=== PATIENT | male | born 1960 | race Caucasian/White ===

== ENCOUNTER 2016-06-16 12:44 | Inpatient (IN) | payer BC ==
[~2016-06-16] VITALS: Ht 193 cm; Wt 142.0 kg
--- NOTE | 2016-06-16 12:55 | NUR ---
PT BIB SELF C/O L FOOT CELLULITIS X2 WEEKS. PT WAS SEEN IN AN URGENT CARE AND TOOK PRESCRIBED BACTRIM AND KEFLEX WITH NO RELIEF. FOOT SWOLLEN, REDDENED, WARM TO THE TOUCH. NO EXUDATE OR ODOR. ABLE TO ABULATE WITH PAIN. NO OTHER COMPLAINTS. IN ER BED 01.
[2016-06-16] MEDS ORDERED: IV NS 0.9% 1,000 ML ONE (13:15)
[2016-06-16] MEDS ORDERED: IV SET PRIMARY PUMP SET 1 EA INFUS.SET MC ONE ×2 (13:15→15:35)
[2016-06-16 13:21] LABS: BASOPHILS # (AUTO) 0.1 /CMM (0.0-0.2); BASOPHILS % (AUTO) 0.5 % (0.0-2.0); EOSINOPHILS # (AUTO) 0.5 /CMM (0.0-0.7); EOSINOPHILS % (AUTO) 4.8 % (0.0-6.0); HEMATOCRIT 42 % (39-51); LYMPHOCYTES # (AUTO) 1.1 /CMM (0.8-4.8); LYMPHOCYTES % (AUTO) 9.8 % (20.0-44.0); MEAN CORPUSCULAR HEMOGLOBIN 28 PG (26.0-33.0); MEAN CORPUSCULAR HGB CONC 33 g/dl (31.0-36.0); MEAN CORPUSCULAR VOLUME 83 fL (80-96); MONOCYTES # (AUTO) 0.6 /CMM (0.1-1.30); MONOCYTES % (AUTO) 5.2 % (2.0-12.0); NEUTROPHILS # (AUTO) 8.9 /CMM (1.8-8.9); NEUTROPHILS % (AUTO) 79.7 % (43.0-81.0); PLATELET COUNT (AUTO) 334 /CMM (150-450); RDW COEFFICIENT OF VARIATION 12.4 (11.5-15.0); RED BLOOD CELL COUNT(AUTO) 5.08 MIL/uL (4.5-6.0); WHITE BLOOD COUNT (AUTO) 11.2 K/uL (4.3-11.0)
[2016-06-16 13:28] LABS: CALCIUM, SERUM 9.2 mg/dL (8.5-10.1); POTASSIUM 3.5 mmol/L (3.5-5.1)
[2016-06-16] MEDS ORDERED: IV NS 0.9% 1,000 ML BAG IV ONE (13:30)
--- NOTE | 2016-06-16 13:43 | NUR ---
RT WRIST #20 IV ACCESS. BLOOD SAMPLE COLLECTED SENT TO LAB
[2016-06-16] MEDS ORDERED: PIPERACILLIN /TAZOBACTAM 3.375 G in IV D5W 50 ML IV ONE (15:30)
[2016-06-16] MEDS ORDERED: VANCOMYCIN 1 GM in IV D5W 250 ML IV ONE (15:30)
[2016-06-16] MEDS ORDERED: ONDANSETRON HCL/PF 4 MG/2 ML VIAL ONE (15:53)
--- NOTE | 2016-06-16 15:55 | NUR ---
[facility] CURRIE ATTENDING .
[2016-06-16 16:00] VITALS: BP 137/82
[2016-06-16] MEDS ORDERED: ONDANSETRON HCL/PF - ER 4 MG/2 ML VIAL IV ONE (16:00)
--- NOTE | 2016-06-16 16:06 | NUR ---
PAGED DR DAVIS
--- NOTE | 2016-06-16 16:12 | NUR ---
DR DAVIS AT PT BEDSIDE
[2016-06-16] MEDS ORDERED: ZOLPIDEM TARTRATE 5 MG TABLET PO PRN (16:30)
[2016-06-16] MEDS ORDERED: ACETAMINOPHEN 325 MG TABLET PO PRN (16:30)
[2016-06-16] MEDS ORDERED: MAGNESIUM HYDROXIDE 30 ML UDC PO PRN (16:30)
[2016-06-16] MEDS ORDERED: MAG HYDROX/AL HYDROX/SIMETH 30 ML UDC PO PRN (16:30)
[2016-06-16] MEDS ORDERED: ONDANSETRON HCL/PF 4 MG/2 ML VIAL IVP PRN (16:30)
[2016-06-16] MEDS ORDERED: DEXTROSE 50%-WATER 50 ML DISP.SYRIN IV PRN (16:30)
[2016-06-16] MEDS ORDERED: Z GUARD REMEDY 2 OZ OINT TP PRN (16:30)
--- NOTE | 2016-06-16 16:30 | NUR ---
RN INITIAL NOTE PT RECEIVED IN BED, ADMITTED FROM ER. REPORT RECEIVED FROM ANDERSON. PT AWAKE, ALERT AND ORIENTED. ABLE TO MAKE NEEDS KNOWN. RESPIRATIONS ARE EVEN AND UNLABORED. SATING WELL ON RA. NO S/S OF RESPIRATORY DISTRESS OR SOB. SKIN IS WARM AND DRY TO TOUCH. SKIN IS INTACT. LEFT LOWER EXTREMITY IS EDEMATOUS. IV SITE, FLUSHED AND PATENT. SAFETY PRECAUTIONS IMPLEMENTED. BED IN LOCKED, LOW POSITION, TWO SIDE RAILS UP. BELONGINGS AND CALL LIGHT WITHIN REACH. WILL CONTINUE TO MONITOR.
[2016-06-16 17:00] VITALS: BP 137/82
[2016-06-16] MEDS: ENOXAPARIN SODIUM 40 MG/0.4 ML DISP.SYRIN SQ SCH (17:00)
[2016-06-16] MEDS ORDERED: FEE PK DOSING 1 MIN EA MC ONE (17:08)
[2016-06-16] MEDS: BLOOD SUGAR DIAGNOSTIC 1 EACH STRIP IN SCH ×2 (18:37→21:24)
[2016-06-16] MEDS: IV 1/2NS 1000 ML 1,000 ML IV PRN (18:38)
--- NOTE | 2016-06-16 19:09 | NUR ---
RN CLOSING NOTE PT RESTING IN BED COMFORTABLY. ALL MD ORDERS CARRIED OUT. PT KEPT CLEAN AND DRY. SAFETY MEASURES IMPLEMENTED AT ALL TIMES. WILL GIVE REPORT TO PM RN FOR MICHAEL.
--- NOTE | 2016-06-16 19:30 | NUR ---
RN NOTES RECEIVED PT AWAKE ON BED AOX4 ABLE TO MAKE KNOWN NEEDS. SATING 98% IN RA WITH RIGHT WRIST G 20 RUNNING WITH 1/2 NS @ 75 CC/HR INTACT AND PATENT. LEFT FOOT CELLULITIS STILL RED AND SWOLLEN NO OOZING SHOWS. AFEBRILE. COMPLAINING OF PAIN BUT TOLERATED AT THIS TIME. CALL LIGHT KEPT WITHIN EASY REACH REMINDED TO USE WHEN NEEDED. KEPT PT CLEAN AND COMFORTABLE IN BED. WILL CONTINUE TO MONITOR.
[2016-06-16 20:00] VITALS: BP 134/77
[2016-06-16] MEDS: HYDROCODONE/APAP 10/325MG 1 EA TABLET PO PRN (21:19)
[2016-06-16] MEDS: INSULIN REGULAR, HUMAN 100 UNIT/ML 3 ML VIAL SQ PRN (22:43)
[2016-06-16] MEDS ORDERED: SECONDARY IV SET 1 EA INFUS.SET MC ONE (23:34)
[2016-06-16] MEDS: VANCOMYCIN 1.5 GM in IV D5W 500 ML IV SCH (23:38)
[2016-06-17 04:00] VITALS: BP 136/81
[2016-06-17] MEDS: HYDROCODONE/APAP 10/325MG 1 EA TABLET PO PRN ×3 (04:10→15:53)
[2016-06-17 06:46] LABS: BASOPHILS % (AUTO) 0.5 % (0.0-2.0); EOSINOPHILS # (AUTO) 0.5 /CMM (0.0-0.7); HEMATOCRIT 38 % (39-51); HEMOGLOBIN 12.4 g/dL (13.5-17.5); LYMPHOCYTES # (AUTO) 1.1 /CMM (0.8-4.8); LYMPHOCYTES % (AUTO) 12.2 % (20.0-44.0); MEAN CORPUSCULAR HEMOGLOBIN 27 PG (26.0-33.0); MEAN CORPUSCULAR HGB CONC 33 g/dl (31.0-36.0); MEAN CORPUSCULAR VOLUME 84 fL (80-96); MONOCYTES # (AUTO) 0.9 /CMM (0.1-1.30); MONOCYTES % (AUTO) 9.7 % (2.0-12.0); NEUTROPHILS # (AUTO) 6.4 /CMM (1.8-8.9); NEUTROPHILS % (AUTO) 71.6 % (43.0-81.0); PLATELET COUNT (AUTO) 300 /CMM (150-450); RDW COEFFICIENT OF VARIATION 13.7 (11.5-15.0); RED BLOOD CELL COUNT(AUTO) 4.51 MIL/uL (4.5-6.0); WHITE BLOOD COUNT (AUTO) 8.9 K/uL (4.3-11.0)
[2016-06-17] MEDS: BLOOD SUGAR DIAGNOSTIC 1 EACH STRIP IN SCH ×4 (06:51→22:38)
[2016-06-17 06:58] LABS: CALCIUM, SERUM 8.7 mg/dL (8.5-10.1); CREATININE 0.9 mg/dL (0.6-1.3); PHOSPHORUS 3.5 mg/dL (2.5-4.9); POTASSIUM 3.9 mmol/L (3.5-5.1)
--- NOTE | 2016-06-17 07:00 | NUR ---
RN NOTES PATIENT REMAINED LEFT LOWER LEG CELLULITIS STILL IN PAIN IV ATB TOLERATED WELL. NO ASE NOTED. AFEBRILE. PT IS CONCERN THAT MEDICINE IS NOT DOING ANYTHING TO HIS FOOT STILL SWOLLEN EDUCATE PATIENT REGARDING ATB AND PLAN OF CARE TO HIM PT VERBALIZED UNDERSTANDING. PAIN MEIDCINE REMAINED EFFECTIVE. PT REMAINED IN STABLE CONDITION. ALL NEEDS ATTENDED. ENDORSED CONTINUITY OF CARE TO AM NURSE
[2016-06-17 07:04] LABS: THYROID STIMULATING HORMONE 2.05 uIU/mL (0.358-3.74)
--- NOTE | 2016-06-17 07:25 | NUR ---
MS RN NOTE: RECEIVED PATIENT WHILE RESTING IN BED, A/O X3. BREATHING EVEN AND UNLABORED ON ROOM AIR. NO SOB, NO DISTRESS. LEFT LOWER EXTREMITY ELEVATED ON PILLOW. PATIENT MADE COMFORTABLE, ALL NEEDS ATTENDED TO, SAFETY MEASURES IN PLACE, WILL CONTINUE TO MONITOR.
[2016-06-17 08:00] VITALS: BP 132/85
[2016-06-17] MEDS: PANTOPRAZOLE 40 MG TABLET.DR PO SCH (08:00)
[2016-06-17] MEDS: IV 1/2NS 1000 ML 1,000 ML IV PRN (08:01)
[2016-06-17] MEDS: VANCOMYCIN 1.5 GM in IV D5W 500 ML IV SCH ×2 (10:57→23:27)
--- NOTE | 2016-06-17 10:57 | NUR ---
MS RN NOTE: PATIENT C/O 8/10 PAIN ON LEFT FOOT, REQUESTING PAIN MEDICATION. NORCO 10 MG GIVEN, TOLERATING WELL, WILL CONTINUE TO MONITOR,
--- NOTE | 2016-06-17 12:00 | NUR ---
MS RN NOTE: PATIENT'S BLOOD SUGAR CHECKED, READING 168. COVERED WITH 3 UNITS INSULIN. NO COMPLICATIONS NOTED, WILL CONTINUE TO MONITOR.
[2016-06-17] MEDS: INSULIN REGULAR, HUMAN 100 UNIT/ML 3 ML VIAL SQ PRN ×3 (12:08→22:44)
--- NOTE | 2016-06-17 15:53 | NUR ---
MS RN NOTE: PATIENT C/O 8/10 PAIN ON LEFT FOOT, REQUESTING PAIN MEDICATION. NORCO 10 MG GIVEN, TOLERATING WELL, WILL CONTINUE TO MONITOR.
[2016-06-17 16:00] VITALS: BP 145/93
--- NOTE | 2016-06-17 17:00 | NUR ---
MS RN NOTE: BLOOD SUGAR CHECKED, READING 151, COVERED WITH 2 UNITS INSULIN. NO COMPLICATIONS NOTED, WILL CONTINUE TO MONITOR.
[2016-06-17] MEDS ORDERED: MORPHINE SULFATE INJ 2 MG/ML DISP.SYRIN IV PRN (17:30)
[2016-06-17] MEDS ORDERED: MORPHINE SULFATE INJ 2 MG/ML DISP.SYRIN IV ONE (17:30)
[2016-06-17] MEDS ORDERED: ZOLPIDEM TARTRATE 5 MG TABLET PO PRN (17:30)
--- NOTE | 2016-06-17 17:30 | NUR ---
MS RN NOTE: PATIENT CONSENTED TO LEFT FOOT I/D WITH ASPIRATION. DR. DUFFY AT BEDSIDE, PERFORMED PROCEDURE. PATIENT HAVING A LOT OF PAIN, MD ORDERED MORPHINE, WILL ADMINISTER.
--- NOTE | 2016-06-17 18:00 | NUR ---
MS RN NOTE: MORPHINE 2MG IVP GIVEN TO PATIENT D/T S/P I/D OF LEFT FOOT. WILL CONTINUE TO MONITOR.
--- NOTE | 2016-06-17 19:00 | NUR ---
MS RN NOTE: PATIENT RESTING IN BED, A/OX 3. BREATHING EVEN AND UNLABORED ON ROOM AIR. NO SOB, NO DISTRESS. PATIENT'S NEEDS ATTENDED TO, SAFETY MEASURES IN PLACE, WILL ENDORSE TO ADMINISTRATIVE CLERK FOR MICHAEL.
[2016-06-17] MEDS ORDERED: SECONDARY IV SET 1 EA INFUS.SET MC ONE (19:07)
[2016-06-17] MEDS: PIPERACILLIN /TAZOBACTAM 3.375 G in IV D5W 50 ML IV SCH ×2 (19:13→23:28)
--- NOTE | 2016-06-17 19:15 | NUR ---
MS RN NOTE: DAVIAN ADMINISTERED LATE D/T PHARMACY DELIVERING IT LATE TO FLOOR.
--- NOTE | 2016-06-17 19:40 | NUR ---
RN NOTES RECEIVED PT AWAKE ON BED AOX4 ABLE TO MAKE KNOWN NEEDS. SATING 98% IN RA WITH RIGHT WRIST G 20 RUNNING WITH 1/2 NS @ 75 CC/HR INTACT AND PATENT. LEFT FOOT CELLULITIS STILL RED AND SWOLLEN NO OOZING SHOWS. AFEBRILE. COMPLAINING OF PAIN BUT TOLERATED AT THIS TIME. PER PT HIS LEFT FOOT IS MORE SWOLLEN TODAY DUE TO THE PROCEDURE THAT WAS DONE EARLIER IN AM. RE-EDUCATE PT REGARDING PLAN OF CARE AND VERBALIZED UNDERSTANDING. CALL LIGHT KEPT WITHIN EASY REACH REMINDED TO USE WHEN NEEDED. KEPT PT CLEAN AND COMFORTABLE IN BED. WILL CONTINUE TO MONITOR.
--- NOTE | 2016-06-17 19:50 | NUR ---
RN NOTES ASSESSMENT DONE FROM LEFT FOOT STILL RED AND MORE SWOLLEN. PALPABLE AND WARMTH TO TOUCH. PER PT PROCEDURE WAS DONE TODAY IN AM. AND ANOTHER ATB WAS ADDED. WITH TOLERABLE PAIN AT HIS TIME. NO SOSB. WILL CONTINUE TO MONITOR.
[2016-06-17 20:00] VITALS: BP 145/93
[2016-06-17 20:18] VITALS: BP 140/93
[2016-06-17] MEDS: ENOXAPARIN SODIUM 40 MG/0.4 ML DISP.SYRIN SQ SCH (22:45)
[2016-06-18] MEDS ORDERED: SECONDARY IV SET 1 EA INFUS.SET MC ONE (00:13)
[2016-06-18] MEDS: HYDROCODONE/APAP 10/325MG 1 EA TABLET PO PRN ×2 (03:01→18:04)
[2016-06-18 04:00] VITALS: BP 166/92
[2016-06-18] MEDS: IV 1/2NS 1000 ML 1,000 ML IV PRN (04:21)
[2016-06-18 04:53] VITALS: BP 166/92
[2016-06-18] MEDS: PIPERACILLIN /TAZOBACTAM 3.375 G in IV D5W 50 ML IV SCH ×3 (05:14→18:04)
[2016-06-18] MEDS: BLOOD SUGAR DIAGNOSTIC 1 EACH STRIP IN SCH ×4 (06:56→21:22)
[2016-06-18] MEDS: INSULIN REGULAR, HUMAN 100 UNIT/ML 3 ML VIAL SQ PRN ×2 (06:56→21:24)
--- NOTE | 2016-06-18 07:06 | NUR ---
RN NOTES PT ASLEEP WELL. ALL NEEDS ATTENDED. PAIN MEDICINE REMAINED EFFECTIVE. LEFT FOOT STILL SWOLLEN, RED AND WARM TO TOUCH. IV ATB AZAEL. WELL WITHOUT ASE NOTED. STILL WAITING FOR THE CX. ENCOURAGED TO ELEVATE LEGS WITH PILLOWS. CALL LIGHT KEPT WITHIN EASY REACH. WILL ENDORSED CONTINUITY OF CARE TO AM NURSE.
[2016-06-18] MEDS: PANTOPRAZOLE 40 MG TABLET.DR PO SCH (07:30)
[2016-06-18 07:54] LABS: BASOPHILS % (AUTO) 0.5 % (0.0-2.0); EOSINOPHILS # (AUTO) 0.5 /CMM (0.0-0.7); HEMATOCRIT 40 % (39-51); HEMOGLOBIN 13.1 g/dL (13.5-17.5); LYMPHOCYTES # (AUTO) 1.1 /CMM (0.8-4.8); LYMPHOCYTES % (AUTO) 12.7 % (20.0-44.0); MEAN CORPUSCULAR HEMOGLOBIN 28 PG (26.0-33.0); MEAN CORPUSCULAR HGB CONC 33 g/dl (31.0-36.0); MEAN CORPUSCULAR VOLUME 83 fL (80-96); MONOCYTES # (AUTO) 0.7 /CMM (0.1-1.30); MONOCYTES % (AUTO) 8.5 % (2.0-12.0); NEUTROPHILS # (AUTO) 6.1 /CMM (1.8-8.9); NEUTROPHILS % (AUTO) 72.3 % (43.0-81.0); PLATELET COUNT (AUTO) 320 /CMM (150-450); RED BLOOD CELL COUNT(AUTO) 4.75 MIL/uL (4.5-6.0); WHITE BLOOD COUNT (AUTO) 8.4 K/uL (4.3-11.0)
[2016-06-18 08:00] VITALS: BP 142/91
[2016-06-18 08:03] LABS: POTASSIUM 3.9 mmol/L (3.5-5.1)
[2016-06-18] MEDS: CLOTRIMAZOLE/BETAMETASONE DIPROPIONATE 15 GM TUBE TP SCH ×2 (09:00→17:00)
[2016-06-18] MEDS: VANCOMYCIN 1.5 GM in IV D5W 500 ML IV SCH ×2 (11:00→22:51)
[2016-06-18 11:51] VITALS: BP 142/91
--- NOTE | 2016-06-18 13:31 | NUR ---
blood sugar of 233 patient refuses coverage
[2016-06-18] MEDS: LACTOBACILLUS RHAMNOSUS GG 1 EACH CAP.SPRINK PO SCH (17:59)
--- NOTE | 2016-06-18 19:25 | NUR ---
RN NOTES RECEIVED PT AWAKE ON BED AOX4 ABLE TO MAKE KNOWN NEEDS. SATING 98% IN RA NO SOB WITH RIGHT FOREARM 1/2 NS @ 75 CC/HR INTACT AND PATENT. LEFT FOOT CELLULITIS STILL SWOLLEN BUT LESS REDNESS NOTED. AFEBRILE. PAIN BUT TOLERABLE AT THIS TIME. ENCOURAGED TO ELEVATE AFFECTED LEG/FOOT. URINAL PLACED CLOSED TO PT. CALL LIGHT KEPT WITHIN EASY REACH REMINDED TO USE WHEN NEEDED. KEPT PT CLEAN AND COMFORTABLE IN BED. WILL CONTINUE TO MONITOR.
[2016-06-18 20:00] VITALS: BP 155/99
[2016-06-18 20:12] VITALS: BP 155/99
[2016-06-18] MEDS: ENOXAPARIN SODIUM 40 MG/0.4 ML DISP.SYRIN SQ SCH (21:26)
[2016-06-19] MEDS: PIPERACILLIN /TAZOBACTAM 3.375 G in IV D5W 50 ML IV SCH ×4 (00:43→19:29)
[2016-06-19] MEDS: BLOOD SUGAR DIAGNOSTIC 1 EACH STRIP IN SCH ×4 (06:42→22:19)
[2016-06-19] MEDS: INSULIN REGULAR, HUMAN 100 UNIT/ML 3 ML VIAL SQ PRN ×4 (06:43→22:26)
--- NOTE | 2016-06-19 06:59 | NUR ---
RN NOTES PT ASLEEP WELL, IN STABLE CONDITION. LEFT FOOT CELLULITIS CONTINUE TO MONITOR. AFEBRILE. NO SOB OR ACUTE RESP DISTRESS. ENCOURAGED TO ELEVATE AFFECTED LEGS/FOOT ALL THE TIME. DENIES PAIN MEDICINE THROUGHOUT THE SHIFT. PAIN WAS TOLERABLE AT THIS TIME. ALL DUE MEDICINE TOLERATED WELL NO ASE FROM IV ATB. IS SITE REMAINED INTACT AND PATENT. WILL ENDORSED CONTINUITY OF CARE TO AM NURSE.
[2016-06-19 07:27] LABS: BASOPHILS % (AUTO) 0.6 % (0.0-2.0); EOSINOPHILS # (AUTO) 0.5 /CMM (0.0-0.7); EOSINOPHILS % (AUTO) 6.5 % (0.0-6.0); HEMATOCRIT 42 % (39-51); HEMOGLOBIN 13.9 g/dL (13.5-17.5); LYMPHOCYTES % (AUTO) 12.4 % (20.0-44.0); MEAN CORPUSCULAR HEMOGLOBIN 28 PG (26.0-33.0); MEAN CORPUSCULAR HGB CONC 33 g/dl (31.0-36.0); MEAN CORPUSCULAR VOLUME 84 fL (80-96); MONOCYTES # (AUTO) 0.6 /CMM (0.1-1.30); NEUTROPHILS # (AUTO) 5.6 /CMM (1.8-8.9); NEUTROPHILS % (AUTO) 72.5 % (43.0-81.0); PLATELET COUNT (AUTO) 331 /CMM (150-450); RDW COEFFICIENT OF VARIATION 13.4 (11.5-15.0); RED BLOOD CELL COUNT(AUTO) 5.04 MIL/uL (4.5-6.0); WHITE BLOOD COUNT (AUTO) 7.8 K/uL (4.3-11.0)
[2016-06-19 07:42] LABS: CALCIUM, SERUM 9.2 mg/dL (8.5-10.1); POTASSIUM 3.8 mmol/L (3.5-5.1)
[2016-06-19] MEDS ORDERED: IV 1/2NS 1000 ML 1,000 ML IV ONE (09:06)
[2016-06-19] MEDS: PANTOPRAZOLE 40 MG TABLET.DR PO SCH (09:52)
[2016-06-19] MEDS: LACTOBACILLUS RHAMNOSUS GG 1 EACH CAP.SPRINK PO SCH ×2 (09:52→18:43)
[2016-06-19] MEDS: CLOTRIMAZOLE/BETAMETASONE DIPROPIONATE 15 GM TUBE TP SCH ×2 (10:00→17:00)
[2016-06-19] MEDS: IV 1/2NS 1000 ML 1,000 ML IV PRN (10:02)
[2016-06-19] MEDS: VANCOMYCIN 1.5 GM in IV D5W 500 ML IV SCH ×2 (11:51→22:35)
[2016-06-19 18:22] VITALS: BP 148/80
[2016-06-19] MEDS: HYDROCODONE/APAP 5/325MG 1 EACH TABLET PO PRN (18:43)
--- NOTE | 2016-06-19 19:30 | NUR ---
RN INITIAL NOTES RECEIVED PATIENT AWAKE ON BED AOX4 ABLE TO MAKE NEEDS KNOWN. BREATHING IS EVEN AND NONLABORED TOLERATING ROOM AIR WELL, FREE FROM ANY S/S OF RESPIRATORY DISTRESS. NOTED WITH RIGHT AC #22G WITH 1/2 NS @ 75 CC/HR, FREE FROM ANY S/S OF INFILTRATION OR PHLEBITIS. AFEBRILE. DENIES ANY PAIN AT THIS TIME, STATING HE RECENTLY RECEIVED SOME MEDICATION. ENCOURAGED TO ELEVATE AFFECTED LEG/FOOT. URINAL PLACED CLOSE TO PT. CALL LIGHT KEPT WITHIN EASY REACH REMINDED TO USE WHEN NEEDED, BED IN LOWEST AND LOCKED POSITION. WILL CONTINUE TO MONITOR. CLOSELY
[2016-06-19 20:00] VITALS: BP 139/87
--- NOTE | 2016-06-19 20:14 | NUR ---
uneventlful shift...iv fluids continue w/o difficulty, medicated for pain x one this shift with good results...call light avail and w/i reach...no distress noted
[2016-06-19] MEDS: ENOXAPARIN SODIUM 40 MG/0.4 ML DISP.SYRIN SQ SCH (22:27)
[2016-06-20] MEDS: IV 1/2NS 1000 ML 1,000 ML IV PRN (01:14)
[2016-06-20] MEDS: PIPERACILLIN /TAZOBACTAM 3.375 G in IV D5W 50 ML IV SCH ×3 (01:14→15:40)
[2016-06-20 04:00] VITALS: BP 145/88
[2016-06-20] MEDS: HYDROCODONE/APAP 5/325MG 1 EACH TABLET PO PRN ×2 (04:44→11:25)
--- NOTE | 2016-06-20 07:15 | NUR ---
RN INITIAL NOTE PT RECEIVED IN BED, AWAKE, ALERT AND ORIENTED. ABLE TO MAKE NEEDS KNOWN. RESPIRATIONS ARE EVEN AND UNLABORED. NO S/S OF RESPIRATORY DISTRESS OR SOB. SATING WELL ON ROOM AIR. SKIN IS WARM AND DRY TO TOUCH. IV SITE FLUSHED AND PATENT. SAFETY MEASURES IMPLEMENTED. BED IN LOCKED LOW POSITION. BELONGINGS AND CALL LIGHT WITHIN EASY REACH. WILL CONTINUE TO MONITOR
[2016-06-20 07:31] LABS: BASOPHILS % (AUTO) 0.4 % (0.0-2.0); EOSINOPHILS # (AUTO) 0.7 /CMM (0.0-0.7); EOSINOPHILS % (AUTO) 8.2 % (0.0-6.0); HEMATOCRIT 38 % (39-51); HEMOGLOBIN 12.5 g/dL (13.5-17.5); LYMPHOCYTES % (AUTO) 12.3 % (20.0-44.0); MEAN CORPUSCULAR HEMOGLOBIN 27 PG (26.0-33.0); MEAN CORPUSCULAR HGB CONC 33 g/dl (31.0-36.0); MEAN CORPUSCULAR VOLUME 84 fL (80-96); MONOCYTES # (AUTO) 0.7 /CMM (0.1-1.30); MONOCYTES % (AUTO) 8.1 % (2.0-12.0); NEUTROPHILS # (AUTO) 5.9 /CMM (1.8-8.9); PLATELET COUNT (AUTO) 347 /CMM (150-450); RED BLOOD CELL COUNT(AUTO) 4.55 MIL/uL (4.5-6.0); WHITE BLOOD COUNT (AUTO) 8.3 K/uL (4.3-11.0)
[2016-06-20 07:45] LABS: CALCIUM, SERUM 9.1 mg/dL (8.5-10.1); POTASSIUM 3.9 mmol/L (3.5-5.1)
[2016-06-20 08:00] VITALS: BP 139/96
[2016-06-20] MEDS: BLOOD SUGAR DIAGNOSTIC 1 EACH STRIP IN SCH ×2 (08:23→15:14)
[2016-06-20] MEDS: LACTOBACILLUS RHAMNOSUS GG 1 EACH CAP.SPRINK PO SCH (08:23)
[2016-06-20] MEDS: PANTOPRAZOLE 40 MG TABLET.DR PO SCH (08:23)
[2016-06-20] MEDS: INSULIN REGULAR, HUMAN 100 UNIT/ML 3 ML VIAL SQ PRN ×2 (08:34→15:15)
[2016-06-20] MEDS: CLOTRIMAZOLE/BETAMETASONE DIPROPIONATE 15 GM TUBE TP SCH (08:35)
[2016-06-20] MEDS ORDERED: RXVAN XX (10:30)
[2016-06-20] MEDS ORDERED: GLIP5TAB13 PO (10:30)
[2016-06-20] MEDS ORDERED: HYDR-3658 PO (10:30)
[2016-06-20] MEDS ORDERED: CLOT15CR5 TP (10:30)
[2016-06-20] MEDS ORDERED: METF10002 PO (10:30)
[2016-06-20] MEDS ORDERED: LEVO500T15 PO (10:30)
[2016-06-20] MEDS: VANCOMYCIN 1.5 GM in IV D5W 500 ML IV SCH (11:25)
--- NOTE | 2016-06-20 17:00 | NUR ---
RN CLOSING NOTE PT STABLE. DISCHARGED HOME WITH PICC LINE FOR IV ANTIBIOTICS.
== END 2016-06-20 17:31 | disposition home or self-care (01) | DRG 638 ==
LOC: ER 12:46 → MEDSG1 15:56
PROC: 0H9NXZZ Drainage of Left Foot Skin, External Approach (ICD-10-PCS; principal; 2016-06-17)
PROC: 02HV33Z Insertion of Infusion Device into Superior Vena Cava, Percutaneous Approach (ICD-10-PCS; 2016-06-20)
PROC: B548ZZA Ultrasonography of Superior Vena Cava, Guidance (ICD-10-PCS; 2016-06-20)
DX: E11.69 Type 2 diabetes mellitus with other specified complication (principal); L03.116 Cellulitis of left lower limb; L02.612 Cutaneous abscess of left foot; M86.10 Other acute osteomyelitis, unspecified site; M00.9 Pyogenic arthritis, unspecified; I10 Essential (primary) hypertension; E78.5 Hyperlipidemia, unspecified; E66.9 Obesity, unspecified; E66.8 Other obesity; Z68.37 Body mass index [BMI] 37.0-37.9, adult; E66.01 Morbid (severe) obesity due to excess calories; G89.29 Other chronic pain; M54.5 Low back pain; Z86.14 Personal history of Methicillin resistant Staphylococcus aureus infection
CPT/HCPCS: 11042; 36415; 71010-TC; 73630-TC; 73718-TC; 80048-TC; 80061-TC; 80202-TC; 82962-TC; 83605-TC; 83735-TC; 84100-TC; 84443-TC; 85025-TC; 85652-TC; 87040-TC; 87070-TC; 87081-TC; 93971-TC; 97001-TC; A4606; A6253; A6402; C1750; J1650; J1815; J2270; J2405; J2543; J3370; J3490; J7030; J7060; Z7610